=== PATIENT | male | born 1965 | race Caucasian/White ===

== ENCOUNTER 2022-09-07 09:38 | Outpatient (CLI) | payer BC ==
[2022-09-07] MEDS ORDERED: Magnevist 469MG/ML 20 ML VIAL ONE (12:39)
== END 2022-09-07 09:39 | disposition home or self-care (01) ==
LOC: CSHMRI 09:38
PROVIDERS: ATTEND Physician Assistant Medical
DX: R77.2 Abnormality of alphafetoprotein (principal); K70.30 Alcoholic cirrhosis of liver without ascites; I85.00 Esophageal varices without bleeding; E11.65 Type 2 diabetes mellitus with hyperglycemia; I10 Essential (primary) hypertension; R16.0 Hepatomegaly, not elsewhere classified; K76.6 Portal hypertension; R18.8 Other ascites; K76.89 Other specified diseases of liver; Z86.718 Personal history of other venous thrombosis and embolism; J90 Pleural effusion, not elsewhere classified; K82.8 Other specified diseases of gallbladder
CPT/HCPCS: 74183; A9579